=== PATIENT | male | born 1950 | race American Indian/Alaskan Native ===

== ENCOUNTER 2018-02-23 20:15 | Inpatient (IN) | payer MEDICARE ==
[2018-02-23 21:55] LABS: Basophils # (Auto) 0.1 K/mm3 (0.0-0.1); Basophils % (Auto) 0.7 % (0.0-1.8); Eosinophils % (Auto) 0.3 % (0.0-4.3); Hematocrit 46.4 % (35.5-45.6); Hemoglobin 15.4 gm/dl (11.8-15.2); Lymphocytes # (Auto) 1.3 K/mm3 (1.2-5.4); Lymphocytes % (Auto) 11.5 % (13.4-35.0); Mean Corpuscular HGB Conc 33 % (32-34); Mean Corpuscular Hemoglobin 31 pg (28-32); Mean Corpuscular Volume 94 fl (84-94); Monocytes # (Auto) 0.5 K/mm3 (0.0-0.8); Monocytes % (Auto) 4.5 % (0.0-7.3); Platelet Count 188 K/mm3 (140-440); Red Blood Count 4.92 M/mm3 (3.65-5.03); Red Cell Distribution Width 13.9 % (13.2-15.2)
[2018-02-23 22:09] LABS: Alanine Aminotransferase 19 units/L (7-56); Albumin 4.3 g/dL (3.9-5); BUN/Creatinine Ratio 18; Blood Urea Nitrogen 18 mg/dL (9-20); Calcium 8.8 mg/dL (8.4-10.2); Hemolysis Index 9
[2018-02-24] MEDS ORDERED: NACL 0.9% 1000 ML 1,000 ML IV ONE (06:53)
--- NOTE | 2018-02-24 06:53 | Emergency Department Report ---
ED General Adult HPI - General Chief complaint: Dental/Oral Stated complaint: TROUBLE SWALLOWING FOOD/WATER Time Seen by Provider: 02/24/18 06:39 Source: patient Mode of arrival: Ambulatory Limitations: No Limitations - History of Present Illness Initial comments: Mr. Hardwick is a pleasant 67 years old male visiting his sister from [place]. He presented to the ER complaining of difficulty swallowing food and liquids for the last 1 year but he stated that his symptoms of getting lost last night. He is stating that he stop eat and drink since last night because he is worried something got stuck in his throat. Patient past medical history significant for diabetes and stroke that left him with left sided weakness. Patient denied any recent weakness, numbness or tingling sensation. Patient denied any new speech problem recently. Patient denied any bowel or bladder incontinence. Severity scale (0 -10): 0 - Related Data Home Medications Medication Instructions Recorded Confirmed Last Taken AtorvaSTATin 40 mg PO HS 02/23/18 02/23/18 Unknown metFORMIN 500 mg PO QID 02/23/18 02/23/18 Unknown Allergies Allergy/AdvReac Type Severity Reaction Status Date / Time No Known Allergies Allergy Unverified 02/23/18 21:39 ED Review of Systems ROS: Stated complaint: TROUBLE SWALLOWING FOOD/WATER Other details as noted in HPI Comment: All other systems reviewed and negative Constitutional: denies: chills, fever Respiratory: denies: cough, orthopnea Cardiovascular: denies: chest pain, palpitations Gastrointestinal: denies: abdominal pain, nausea, vomiting, diarrhea, constipation, hematemesis, melena, hematochezia Musculoskeletal: denies: back pain Skin: denies: rash, lesions Neurological: denies: headache, weakness ED Past Medical Hx - Past Medical History Hx CVA: Yes (Left hemiparesis) Hx Diabetes: Yes Additional medical history: High Cholesterol - Surgical History Past Surgical History?: No - Social History Smoking Status: Never Smoker Substance Use Type: None - Medications Home Medications: Home Medications Medication Instructions Recorded Confirmed Last Taken Type AtorvaSTATin 40 mg PO HS 02/23/18 02/23/18 Unknown History metFORMIN 500 mg PO QID 02/23/18 02/23/18 Unknown History ED Physical Exam - General Limitations: No Limitations General appearance: alert, in no apparent distress - Head Head exam: Present: atraumatic, normocephalic, normal inspection - Eye Eye exam: Present: normal appearance - ENT ENT exam: Present: normal exam, normal orophraynx, mucous membranes moist - Neck Neck exam: Present: normal inspection, full ROM. Absent: tenderness, meningismus, lymphadenopathy, thyromegaly - Respiratory Respiratory exam: Present: normal lung sounds bilaterally. Absent: respiratory distress, wheezes, rales, rhonchi, chest wall tenderness, accessory muscle use, decreased breath sounds, prolonged expiratory - Cardiovascular Cardiovascular Exam: Present: regular rate, normal rhythm, normal heart sounds - GI/Abdominal GI/Abdominal exam: Present: soft, normal bowel sounds. Absent: distended, tenderness, guarding, rebound, rigid, organomegaly, mass, bruit, pulsatile mass , hernia - Extremities Exam Extremities exam: Present: normal inspection, full ROM, normal capillary refill. Absent: pedal edema, calf tenderness - Back Exam Back exam: Present: normal inspection, full ROM. Absent: CVA tenderness (L), muscle spasm, paraspinal tenderness - Neurological Exam Neurological exam: Present: alert, oriented X3, CN II-XII intact, abnormal gait , motor sensory deficit (left upper and lower extremity weakness which is chronic) - Psychiatric Psychiatric exam: Present: normal affect, normal mood - Skin Skin exam: Present: warm, intact, normal color ED Course Vital Signs 02/23/18 02/24/18 02/24/18 20:46 03:52 08:05 Temperature 98.6 F 98.3 F Pulse Rate 81 61 Respiratory 18 18 Rate Blood Pressure 138/75 130/68 Blood Pressure [Right] O2 Sat by Pulse 96 99 98 Oximetry 02/24/18 02/24/18 02/24/18 08:15 08:30 09:30 Temperature 97.6 F Pulse Rate 75 Respiratory 18 Rate Blood Pressure 170/85 132/70 Blood Pressure 170/85 [Right] O2 Sat by Pulse 99 99 98 Oximetry 02/24/18 10:00 Temperature Pulse Rate 67 Respiratory Rate Blood Pressure Blood Pressure [Right] O2 Sat by Pulse Oximetry ED Medical Decision Making - Lab Data Result diagrams: 02/23/18 21:43 02/23/18 21:43 - Medical Decision Making I discussed the patient is Dr. Ceja from gastroenterology. Dr. Ceja advised to admit the patient to the hospitalist and he'll be consulted on the patient. I discuss the options with the patient, patient agreed to be admitted. I discussed the patient is Dr. Fernandez, he advised to admit the patient to Dr. Cardoza. Critical care attestation.: If time is entered above; I have spent that time in minutes in the direct care of this critically ill patient, excluding procedure time. ED Disposition Clinical Impression: Dysphagia Disposition: DC-[id number] OP ADMIT IP TO THIS HOSP Is pt being admited?: Yes Condition: Stable
[2018-02-24] MEDS ORDERED: SODIUM CHLORIDE FLUSH SYRINGE 10 ML IV PRN (10:27)
[2018-02-24] MEDS ORDERED: TYLENOL PO PRN (10:27)
[2018-02-24] MEDS ORDERED: ZOFRAN IV PRN (10:27)
[2018-02-24] MEDS ORDERED: D50W (25GM) Syringe IV PRN (10:29)
[2018-02-24] MEDS ORDERED: APRESOLINE IV PRN (10:30)
--- NOTE | 2018-02-24 15:48 | Gastroenterology Consultation ---
History of Present Illness - Reason for Consult Consult date: 02/24/18 dysphagia Requesting physician: CHARLES DEAN - History of Present Illness Mr Hardwick is a 67 yo aam who presents for evaluation of progressive dysphagia. pt with h/o CVA over 1 year ago. He has had progressive dysphagia to solids and liquids for the past 1 year, but has been more frequent and worse over the last few weeks. He has been unable to tolerate any po intake for the past few days, but denies any food triggers prior to this to suggest a food impaction. He is attempting to keep some liquids down today. He has lost ~5 lbs but denies significant weight loss. Denies abd pain; pt is not on plavix or anticoagulation. Past History Past Medical History: hyperlipidemia, other (CVA) Past Surgical History: No surgical history Social history: no significant social history Family history: no significant family history Medications and Allergies Allergies Allergy/AdvReac Type Severity Reaction Status Date / Time No Known Allergies Allergy Unverified 02/23/18 21:39 Home Medications Medication Instructions Recorded Confirmed Last Taken Type AtorvaSTATin 40 mg PO HS 02/23/18 02/23/18 Unknown History metFORMIN 500 mg PO QID 02/23/18 02/23/18 Unknown History Active Meds: Active Medications Acetaminophen (Tylenol) 650 mg PO Q4H PRN PRN Reason: Pain MILD(1-3)/Fever >100.5/FIGUEROA Dextrose (D50w (25gm) Syringe) 50 ml IV PRN PRN PRN Reason: Hypoglycemia Hydralazine HCl (Apresoline) 10 mg IV Q4HR PRN PRN Reason: Blood Pressure Sodium Chloride (Nacl 0.9% 1000 Ml) 1,000 mls @ 100 mls/hr IV DIRECT KM Ondansetron HCl (Zofran) 4 mg IV Q8H PRN PRN Reason: Nausea And Vomiting Sodium Chloride (Sodium Chloride Flush Syringe 10 Ml) 10 ml IV BID KM Sodium Chloride (Sodium Chloride Flush Syringe 10 Ml) 10 ml IV PRN PRN PRN Reason: LINE FLUSH Review of Systems - Review of Systems All systems: negative (per HPI) Exam - Constitutional Vital Signs: Temp Pulse Resp BP Pulse Ox 97.6 F 56 L 18 131/74 98 02/24/18 13:21 02/24/18 13:21 02/24/18 13:21 02/24/18 13:21 02/24/18 13:21 General appearance: no acute distress - EENT Eyes: PERRL ENT: hearing intact - Neck Neck: supple - Respiratory Respiratory effort: normal Respiratory: bilateral: CTA - Cardiovascular Rhythm: regular Heart Sounds: Present: S1 & S2 Extremities: No edema - Gastrointestinal General gastrointestinal: Present: soft, non-tender, non-distended, normal bowel sounds - Neurologic Neurological: alert and oriented x3 - Psychiatric Psychiatric: appropriate mood/affect - Labs CBC & Chem 7: 02/23/18 21:43 02/23/18 21:43 Lab Results: Laboratory Results - last 24 hr 02/23/18 02/23/18 02/24/18 21:43 21:43 12:20 WBC 10.9 RBC 4.92 Hgb 15.4 H Hct 46.4 H MCV 94 MCH 31 MCHC 33 RDW 13.9 Plt Count 188 Lymph % (Auto) 11.5 L [place] % (Auto) 4.5 Eos % (Auto) 0.3 Baso % (Auto) 0.7 Lymph # 1.3 [place] # 0.5 Eos # 0.0 Baso # 0.1 Seg Neutrophils % 83.0 H Seg Neutrophils # 9.1 H Sodium 137 Potassium 4.6 Chloride 100.5 Carbon Dioxide 25 Anion Gap 16 BUN 18 Creatinine 1.0 Estimated GFR > 60 BUN/Creatinine Ratio 18 Glucose 154 H POC Glucose 91 Calcium 8.8 Total Bilirubin 0.60 AST 24 ALT 19 Alkaline Phosphatase 79 Total Protein 7.8 Albumin 4.3 Albumin/Globulin Ratio 1.2 Assessment and Plan 1. Dysphagia - sounds oropharyngeal given description, also with h/o CVA. will request speech eval and esophagram to r/o esophageal mechanical abnormalities. may need peg tube based on speech recommendations.
--- NOTE | 2018-02-24 17:53 | History and Physical Report ---
History of Present Illness Date of examination: 02/24/18 Date of admission: 02/24/18 08:56 Chief complaint: Difficulty swallowing History of present illness: Patient is a 57-year-old -[place] male with history of diabetes mellitus , who presented to the ED on account of 2 years history of worsening history of difficulty swallowing solids. He admits to some weight loss but unable to determine how much weight he had lost. He denies throat pain, anorexia, nausea/ vomiting, abdominal pain, constipation or diarrhea. No chest pain, shortness of breath, palpitation, leg swelling, fever, chills, or cough. No headaches, syncope or loss of consciousness. Past History Past Medical History: hyperlipidemia, other (CVA) Past Surgical History: No surgical history Social history: no significant social history (he denies tobacco, alcohol or illicit drug use) Family history: no significant family history Medications and Allergies Allergies Allergy/AdvReac Type Severity Reaction Status Date / Time No Known Allergies Allergy Unverified 02/23/18 21:39 Home Medications Medication Instructions Recorded Confirmed Last Taken Type AtorvaSTATin 40 mg PO HS 02/23/18 02/23/18 Unknown History metFORMIN 500 mg PO QID 02/23/18 02/23/18 Unknown History Active Meds: Active Medications Acetaminophen (Tylenol) 650 mg PO Q4H PRN PRN Reason: Pain MILD(1-3)/Fever >100.5/FIGUEROA Dextrose (D50w (25gm) Syringe) 50 ml IV PRN PRN PRN Reason: Hypoglycemia Hydralazine HCl (Apresoline) 10 mg IV Q4HR PRN PRN Reason: Blood Pressure Sodium Chloride (Nacl 0.9% 1000 Ml) 1,000 mls @ 100 mls/hr IV DIRECT KM Ondansetron HCl (Zofran) 4 mg IV Q8H PRN PRN Reason: Nausea And Vomiting Sodium Chloride (Sodium Chloride Flush Syringe 10 Ml) 10 ml IV BID KM Sodium Chloride (Sodium Chloride Flush Syringe 10 Ml) 10 ml IV PRN PRN PRN Reason: LINE FLUSH Review of Systems All systems: negative (except as documented in the HPI, all other systems were reviewed and negative) Exam - Constitutional Vitals: Temp Pulse Resp BP Pulse Ox 97.6 F 56 L 18 131/74 98 02/24/18 13:21 02/24/18 13:21 02/24/18 13:21 02/24/18 13:21 02/24/18 13:21 General appearance: Present: no acute distress, well-nourished - EENT Eyes: Present: PERRL, EOM intact ENT: hearing intact, clear oral mucosa - Neck Neck: Present: supple, normal ROM - Respiratory Respiratory effort: normal Respiratory: bilateral: CTA - Cardiovascular Heart Sounds: Present: S1 & S2. Absent: rub, click - Extremities Extremities: pulses symmetrical, No edema Peripheral Pulses: within normal limits - Abdominal General gastrointestinal: Present: soft, non-tender, non-distended, normal bowel sounds Male genitourinary: Present: deferred - Integumentary Integumentary: Present: clear, warm, dry - Musculoskeletal Musculoskeletal: gait normal, strength equal bilaterally - Psychiatric Psychiatric: appropriate mood/affect, intact judgment & insight - Neurologic Neurologic: CNII-XII intact, moves all extremities Results - Labs CBC & Chem 7: 02/23/18 21:43 02/23/18 21:43 Labs: Laboratory Last Values WBC 10.9 K/mm3 (4.5-11.0) 02/23/18 21:43 RBC 4.92 M/mm3 (3.65-5.03) 02/23/18 21:43 Hgb 15.4 gm/dl (11.8-15.2) H 02/23/18 21:43 Hct 46.4 % (35.5-45.6) H 02/23/18 21:43 MCV 94 fl (84-94) 02/23/18 21:43 MCH 31 pg (28-32) 02/23/18 21:43 MCHC 33 % (32-34) 02/23/18 21:43 RDW 13.9 % (13.2-15.2) 02/23/18 21:43 Plt Count 188 K/mm3 (140-440) 02/23/18 21:43 Lymph % (Auto) 11.5 % (13.4-35.0) L 02/23/18 21:43 [place] % (Auto) 4.5 % (0.0-7.3) 02/23/18 21:43 Eos % (Auto) 0.3 % (0.0-4.3) 02/23/18 21:43 Baso % (Auto) 0.7 % (0.0-1.8) 02/23/18 21:43 Lymph # 1.3 K/mm3 (1.2-5.4) 02/23/18 21:43 [place] # 0.5 K/mm3 (0.0-0.8) 02/23/18 21:43 Eos # 0.0 K/mm3 (0.0-0.4) 02/23/18 21:43 Baso # 0.1 K/mm3 (0.0-0.1) 02/23/18 21:43 Seg Neutrophils % 83.0 % (40.0-70.0) H 02/23/18 21:43 Seg Neutrophils # 9.1 K/mm3 (1.8-7.7) H 02/23/18 21:43 Sodium 137 mmol/L (137-145) 02/23/18 21:43 Potassium 4.6 mmol/L (3.6-5.0) 02/23/18 21:43 Chloride 100.5 mmol/L (98-107) 02/23/18 21:43 Carbon Dioxide 25 mmol/L (22-30) 02/23/18 21:43 Anion Gap 16 mmol/L 02/23/18 21:43 BUN 18 mg/dL (9-20) 02/23/18 21:43 Creatinine 1.0 mg/dL (0.8-1.5) 02/23/18 21:43 Estimated GFR > 60 ml/min 02/23/18 21:43 BUN/Creatinine Ratio 18 % 02/23/18 21:43 Glucose 154 mg/dL (75-100) H 02/23/18 21:43 POC Glucose 127 (70-105) H 02/24/18 16:25 Calcium 8.8 mg/dL (8.4-10.2) 02/23/18 21:43 Total Bilirubin 0.60 mg/dL (0.1-1.2) 02/23/18 21:43 AST 24 units/L (5-40) 02/23/18 21:43 ALT 19 units/L (7-56) 02/23/18 21:43 Alkaline Phosphatase 79 units/L (35-129) 02/23/18 21:43 Total Protein 7.8 g/dL (6.3-8.2) 02/23/18 21:43 Albumin 4.3 g/dL (3.9-5) 02/23/18 21:43 Albumin/Globulin Ratio 1.2 % 02/23/18 21:43 Assessment and Plan Assessment and plan: Dysphagia -Exact cause unknown -GI consulted DM2 -on SSI HLD -On statin Time spent: 30 minutes Disposition: Discharge will depend on clinical course
[2018-02-24] MEDS ORDERED: NON-FORMULARY (Atorvastatin 40 MG) PO SCH (22:00)
[2018-02-24] MEDS: SODIUM CHLORIDE FLUSH SYRINGE 10 ML IV SCH (22:44)
[2018-02-24] MEDS: HumaLOG SUB-Q SCH (22:46)
[2018-02-25] MEDS: NACL 0.9% 1000 ML 1,000 ML IV SCH ×2 (01:51→21:54)
[2018-02-25] MEDS: HumaLOG SUB-Q SCH ×3 (07:30→17:28)
--- NOTE | 2018-02-25 08:10 | Progress Note ---
Assessment and Plan Assessment and plan: 57 y/o male admitted with dehydration 2/2 poor oral intake as a result of worsening oropharyngeal dysphagia. A/P Profound Dehydration 2/2 poor oral intake Maintain IVF hydration monitor lytes and strict I/Os obtain repeat labs in am. Oropharyngeal Dysphagia In this pt with h/o CVA f/u ST eval and reccs Aspiration precautions at all times Keep HOB elevated at all times GI reccs appreciated. Adult FTT 2/2 poor oral intake' Nutrition consult for eval monitor closely HTN, essen, chronic continue mgt DM II continue SSI acchuchecks h/o CVA fall and aspiration precautions at all times Further pt mgt per hospital course. f/u GI reccs Consider advance diet, but discuss with the GI team 25 mins History Interval history: 67 y/o male admitted with progressive Oropharyngeal dysphagia, started about 2 yrs ago. His Barium swallow was negative. Pt admits to problems with solids more than liquids. Sister Ms Peguero was by bedside during the encounter. Symptoms started prior to pt's stroke Hospitalist Physical - Constitutional Vitals: Temp Pulse Resp BP Pulse Ox 97.6 F 63 18 134/69 100 02/25/18 02:09 02/25/18 02:09 02/25/18 02:09 02/25/18 02:09 02/25/18 02:09 General appearance: Present: no acute distress, other (appears younger than his stated age of 67 yrs. ) - EENT Eyes: Present: PERRL, EOM intact ENT: hearing intact, clear oral mucosa, other - Neck Neck: Present: supple, normal ROM, other (Oropharyngeal erythema, no oral thrush ) - Respiratory Respiratory: bilateral: CTA, negative: diminished, rales, rhonchi - Cardiovascular Rhythm: regular Heart Sounds: Present: S1 & S2 - Extremities Extremities: no ischemia, pulses intact, pulses symmetrical Peripheral Pulses: within normal limits - Abdominal General gastrointestinal: soft, non-tender, non-distended, normal bowel sounds - Integumentary Integumentary: Present: clear, warm, dry - Psychiatric Psychiatric: appropriate mood/affect, intact judgment & insight, memory intact, cooperative - Neurologic Neurologic: CNII-XII intact, moves all extremities, gait normal Results - Labs CBC & Chem 7: 02/23/18 21:43 02/23/18 21:43 Labs: Laboratory Last Values WBC 10.9 K/mm3 (4.5-11.0) 02/23/18 21:43 RBC 4.92 M/mm3 (3.65-5.03) 02/23/18 21:43 Hgb 15.4 gm/dl (11.8-15.2) H 02/23/18 21:43 Hct 46.4 % (35.5-45.6) H 02/23/18 21:43 MCV 94 fl (84-94) 02/23/18 21:43 MCH 31 pg (28-32) 02/23/18 21:43 MCHC 33 % (32-34) 02/23/18 21:43 RDW 13.9 % (13.2-15.2) 02/23/18 21:43 Plt Count 188 K/mm3 (140-440) 02/23/18 21:43 Lymph % (Auto) 11.5 % (13.4-35.0) L 02/23/18 21:43 [place] % (Auto) 4.5 % (0.0-7.3) 02/23/18 21:43 Eos % (Auto) 0.3 % (0.0-4.3) 02/23/18 21:43 Baso % (Auto) 0.7 % (0.0-1.8) 02/23/18 21:43 Lymph # 1.3 K/mm3 (1.2-5.4) 02/23/18 21:43 [place] # 0.5 K/mm3 (0.0-0.8) 02/23/18 21:43 Eos # 0.0 K/mm3 (0.0-0.4) 02/23/18 21:43 Baso # 0.1 K/mm3 (0.0-0.1) 02/23/18 21:43 Seg Neutrophils % 83.0 % (40.0-70.0) H 02/23/18 21:43 Seg Neutrophils # 9.1 K/mm3 (1.8-7.7) H 02/23/18 21:43 Sodium 137 mmol/L (137-145) 02/23/18 21:43 Potassium 4.6 mmol/L (3.6-5.0) 02/23/18 21:43 Chloride 100.5 mmol/L (98-107) 02/23/18 21:43 Carbon Dioxide 25 mmol/L (22-30) 02/23/18 21:43 Anion Gap 16 mmol/L 02/23/18 21:43 BUN 18 mg/dL (9-20) 02/23/18 21:43 Creatinine 1.0 mg/dL (0.8-1.5) 02/23/18 21:43 Estimated GFR > 60 ml/min 02/23/18 21:43 BUN/Creatinine Ratio 18 % 02/23/18 21:43 Glucose 154 mg/dL (75-100) H 02/23/18 21:43 POC Glucose 117 (70-105) H 02/25/18 07:56 Calcium 8.8 mg/dL (8.4-10.2) 02/23/18 21:43 Total Bilirubin 0.60 mg/dL (0.1-1.2) 02/23/18 21:43 AST 24 units/L (5-40) 02/23/18 21:43 ALT 19 units/L (7-56) 02/23/18 21:43 Alkaline Phosphatase 79 units/L (35-129) 02/23/18 21:43 Total Protein 7.8 g/dL (6.3-8.2) 02/23/18 21:43 Albumin 4.3 g/dL (3.9-5) 02/23/18 21:43 Albumin/Globulin Ratio 1.2 % 02/23/18 21:43 - Imaging and Cardiology Chest x-ray: report reviewed, image reviewed (barium swallow)
--- NOTE | 2018-02-25 11:12 | Fluoroscopy Report ---
BARIUM SWALLOW INDICATION: Dysphagia. COMPARISON: None similar. IMAGES/CINE CLIPS: 34 FINDINGS: Barium swallow performed. Patient swallowed thick and thin barium without any difficulty as also tolerated effervescent granules well. Cervical and thoracic spondylosis noted. No aspiration or penetration with normal swallowing mechanism. No abnormal pooling within the vallecula or piriform sinuses noted. Esophagus is normal in course and caliber. Normal peristalsis. No focal mucosal abnormality. Somewhat horizontally oriented stomach partly obscures the GE junction, though without demonstrable hiatal hernia or gastroesophageal reflux. Visualized gastric fundus is unremarkable. CONCLUSION: Normal barium swallow, as described. Thank you for the opportunity to participate in this patient's care.
--- NOTE | 2018-02-25 15:06 | Gastroenterology Progress Note ---
<PINEDA HERNANDEZ - Last Filed: 02/25/18 15:06> Assessment and Plan 1.dysphagia -etiology unclear- possible oropharyngeal given h/o CVA vs other -passed bedside swallow eval by speech -esophagram with normal results -recommend an EGD in am for further evaluation -okay for regular diet today then NPO after MN -continue supportive care -will follow Subjective Date of service: 02/25/18 Principal diagnosis: dysphagia Interval history: No acute distress or events overnight. Denies abd pain or N/V. Objective - Constitutional Vitals: Temp Pulse Resp BP Pulse Ox 97.6 F 67 17 108/73 90 02/25/18 08:14 02/25/18 10:00 02/25/18 08:14 02/25/18 08:14 02/25/18 10:00 General appearance: no acute distress - Respiratory Respiratory: bilateral: CTA - Cardiovascular Rhythm: regular Heart Sounds: Present: S1 & S2 - Gastrointestinal General gastrointestinal: Present: soft, non-tender, non-distended, normal bowel sounds - Neurologic Neurological: alert and oriented x3 - Labs CBC & Chem 7: 02/23/18 21:43 02/23/18 21:43 Labs: Laboratory Results - last 24 hr 02/24/18 02/24/18 02/25/18 16:25 21:23 07:56 POC Glucose 127 H 116 H 117 H 02/25/18 11:49 POC Glucose 110 H <JUDITH HERMOSILLO - Last Filed: 02/25/18 23:13> Assessment and Plan Pt seen and examined. Will plan for EGD tomorrow. If negative and tolerating po, can likely be discharged Objective - Constitutional Vitals: Temp Pulse Resp BP Pulse Ox 98.4 F 50 L 18 135/71 100 02/25/18 19:35 02/25/18 19:35 02/25/18 19:35 02/25/18 19:35 02/25/18 19:35 - Labs CBC & Chem 7: 02/23/18 21:43 02/23/18 21:43 Labs: Laboratory Results - last 24 hr 02/25/18 02/25/18 02/25/18 07:56 11:49 16:32 POC Glucose 117 H 110 H 93
[2018-02-25] MEDS: SODIUM CHLORIDE FLUSH SYRINGE 10 ML IV SCH ×2 (15:32→21:49)
[2018-02-26] MEDS: HumaLOG SUB-Q SCH ×3 (00:04→12:23)
[2018-02-26 03:39] LABS: Alanine Aminotransferase 19 units/L (7-56); Albumin 3.5 g/dL (3.9-5); BUN/Creatinine Ratio 12; Blood Urea Nitrogen 11 mg/dL (9-20); Calcium 8.4 mg/dL (8.4-10.2); Hematocrit 41.9 % (35.5-45.6); Hemoglobin 14.2 gm/dl (11.8-15.2); Hemolysis Index 9; Mean Corpuscular HGB Conc 34 % (32-34); Mean Corpuscular Hemoglobin 32 pg (28-32); Mean Corpuscular Volume 93 fl (84-94); Platelet Count 164 K/mm3 (140-440); Red Blood Count 4.51 M/mm3 (3.65-5.03); Red Cell Distribution Width 13.3 % (13.2-15.2)
[2018-02-26] MEDS: SODIUM CHLORIDE FLUSH SYRINGE 10 ML IV SCH (09:00)
[2018-02-26] MEDS ORDERED: NACL 0.9% 1000 ML 1,000 ML IV SCH (10:00)
[2018-02-26] MEDS: NACL 0.9% 1000 ML 1,000 ML IV SCH (10:11)
[2018-02-26] MEDS ORDERED: DIPRIVAN 10 MG/ML IV ONE (10:55)
[2018-02-26] MEDS ORDERED: VERSED ONE (10:56)
[2018-02-26] MEDS ORDERED: WATER FOR IRRIG STERILE IR ONE (10:58)
--- NOTE | 2018-02-26 11:06 | Operative Report ---
Operative Report Operative Report: Esophagogastroduodenoscopy Procedure Note Date of procedure: 02/26/2018 Endoscopist: Stanley Ceja Pre-op diagnosis: dysphagia Post-op diagnosis: mild esophagitis, otherwise normal upper endoscopy Anesthesia: MAC Complications: No immediate complications Estimated blood loss: None Procedure: After consent was obtained, the patient was placed in the left lateral decubitus position. The fujinon endoscope was inserted into the patient 's mouth under direct vision, and advanced into the 2nd portion of the duodenum without difficulty. The patient tolerated the procedure well. The views of the mucosa were good. Patient's vital signs were monitored continuously throughout the procedure. Findings: There was mild esophagitis at the GE junction. Otherwise, the esophagus appeared normal. The stomach appeared normal. The duodenum appeared normal. Impression: 1. Mild esophagitis, otherwise unremarkable upper endoscopy Recommendations: -patient can be discharged from GI stand point. he is tolerating po and passed swallow evaluation -anti-acid medication as needed will sign off, please call as needed or with questions
--- NOTE | 2018-02-26 11:44 | Anesthesia Day of Surgery ---
Anesthesia Day of Surgery - Day of Surgery Patient Examined: Yes Patient H&P Reviewed: Yes Patient is NPO: Yes
--- NOTE | 2018-02-26 11:44 | Anesthesia Consultation ---
Anesthesia Consult and Med Hx Date of service: 02/26/18 - Airway Anesthetic Teeth Evaluation: Edentulous ROM Head & Neck: Adequate Mental/Hyoid Distance: Adequate Mallampati Class: Class II Intubation Access Assessment: Probably Good - Pulmonary Exam CTA: Yes - Cardiac Exam Cardiac Exam: RRR - Pre-Operative Health Status ASA Pre-Surgery Classification: ASA3 Proposed Anesthetic Plan: MAC - Central Nervous System CVA: Yes (09/13/2016, left side weakness) - Endocrine Hx Non-Insulin Dependent Diabetes: Yes
--- NOTE | 2018-02-26 12:12 | Discharge Summary ---
Providers - Providers Date of Admission: 02/24/18 08:56 Date of discharge: 02/26/18 Attending physician: RUBY SKAGGS 02/24/18 08:04 Consult to Physician [CONS] Stat Comment: called office @1027/ed Consulting Provider: JUDITH HERMOSILLO Physician Instructions: Reason For Exam: difficulty swallowing 02/24/18 15:42 Speech Therapy Evaluation and Treat [CONS] Routine Reason For Exam: dysphagia 02/25/18 08:10 Consult to Dietitian/Nutrition [CONS] Routine Physician Instructions: Reason For Exam: Reason for Consult: WEIGHT LOSS Primary care physician: RESTAURANT COOK Hospitalization Reason for admission: Dysphagia Condition: Stable Pertinent studies: EGD Chest XR Barium swallow. Hospital course: History of present illness: Patient is a 67-year-old -[place] male with history of diabetes mellitus , who presented to the ED on account of 2 years history of worsening history of difficulty swallowing solids. He admits to some weight loss but unable to determine how much weight he had lost. He denies throat pain, anorexia, nausea/ vomiting, abdominal pain, constipation or diarrhea. No chest pain, shortness of breath, palpitation, leg swelling, fever, chills, or cough. No headaches, syncope or loss of consciousness. Brief Hospital course: Patient was admitted to the hospital service with a diagnosis of Dysphagia and placed on NPO status. He was seen in consultation by the GI team, who recommendation for Speech/ swallow evaluation. Patient subsequently underwent a Barium swallow, which was negative for any form of aspiration. Patient intermittently tolerated his diet well with no problems. With the recommendations of the GI specialist, patient underwent EGD today, which showed mild Esophagitis. Patient was then cleared for discharge by GI, who also recommended a PPI. Patient is therefore being discharged home today, 02/26/18, in stable condition with stable vital signs. Disposition: [id number] TO HOME OR SELFCARE Time spent for discharge: More than 30 mins - Discharge Diagnoses (1) Dysphagia Status: Acute Qualifiers: Dysphagia type: esophageal phase Qualified Code(s): R13.10 - Dysphagia, unspecified Comment: s/p EGD discharge home on oral Protonix daily. Follow up with PCP. (2) Dehydration Status: Acute Comment: Treated with IVF hydration (3) History of CVA (cerebrovascular accident) Status: Acute Comment: continue home mediations. Follow up with your PCP Fall precautions at all times Core Measure Documentation - Palliative Care Palliative Care/ Comfort Measures: Not Applicable - Core Measures Any of the following diagnoses?: none - VTE Discharge Requirements Deep Vein Thrombosis/Pulmonary Embolism Present on Admission: No Has pt received <5 days of overlap therapy or INR<2.0: No Anticoagulant overlap therapy prescribed at discharge: No Contraindication No Overlap Therapy order at DC: Medical Contraindication - Acute UT Discharge Requirements Aspirin at discharge: No Reason for no aspirin on DC: Medical contraindication KATIA/ARB for LVSD if EF <40%: Not Applicable Reason for no KATIA/ARB: Medical contraindication Beta roger at discharge: No Reason for no beta roger on DC: Medical contraindication Statin for LDL = or >100 mg/dl on DC: Not Applicable Reason for no statin on DC: Medical contraindication - Heart Failure Discharge Requirements KATIA/ARB for LVSD if EF <40%: Not Applicable Reason for no KATIA/ARB: Medical contraindication Beta roger at discharge: No Reason for no beta roger on DC: Medical contraindication - Stroke Discharge Requirements Statin for LDL = or >70 mg/dl on DC: Not Applicable Reason for no statin on DC: Medical Contraindication Anticoag for atrial fib/atrial flutter: Not Applicable Reason for no anticoag for AF/F on DC: Medical Contraindication Antithrombotic for ischemic stroke: No Reason for no antithrombotic on DC: Medical Contraindication Exam - Constitutional Vitals: Temp Pulse Resp BP Pulse Ox 98.3 F 55 L 12 126/62 99 02/26/18 11:06 02/26/18 11:36 02/26/18 11:36 02/26/18 11:36 02/26/18 11:36 General appearance: Present: no acute distress, well-nourished - EENT Eyes: Present: PERRL, EOM intact ENT: hearing intact, clear oral mucosa, dentition normal - Neck Neck: Present: supple, normal ROM - Respiratory Respiratory: bilateral: CTA, negative: rales, rhonchi, wheezing - Cardiovascular Rhythm: regular Heart Sounds: Present: S1 & S2 - Extremities Extremities: no ischemia, pulses intact, pulses symmetrical, normal temperature , normal color Peripheral Pulses: within normal limits - Abdominal General gastrointestinal: Present: soft, non-tender, non-distended, normal bowel sounds Male genitourinary: Present: deferred - Rectal Rectal Exam: deferred - Integumentary Integumentary: Present: clear, warm, dry - Musculoskeletal Musculoskeletal: strength equal bilaterally - Psychiatric Psychiatric: appropriate mood/affect, intact judgment & insight, memory intact, cooperative - Neurologic Neurologic: CNII-XII intact, moves all extremities - Allied Health Allied health notes reviewed: nursing, social work, case management Plan Activity: no restrictions, advance as tolerated Diet: regular, advance as tolerated Special Instructions: record daily BP diary Follow up with: PRIMARY CARE, [Primary Care Provider] - 3-5 Days Prescriptions: Pantoprazole [Protonix TAB] 40 mg PO QDAY 30 Days #30 tablet
[2018-02-26 13:47] VITALS: BP 103/68
[2018-02-27] MEDS ORDERED: PROTONIX PO SCH (10:00)
== END 2018-02-26 15:35 | disposition home or self-care (01) | DRG 392 ==
LOC: ED 20:15 → 2B-ACE 02-24 08:56
PROVIDERS: ADMIT Internal Medicine; ATTEND Family Medicine
PROC: 0DJ08ZZ Inspection of Upper Intestinal Tract, Via Natural or Artificial Opening Endoscopic (ICD-10-PCS; principal; 2018-02-26)
DX: K20.9 Esophagitis, unspecified (principal); I69.354 Hemiplegia and hemiparesis following cerebral infarction affecting left non-dominant side; R13.12 Dysphagia, oropharyngeal phase; E86.0 Dehydration; R62.7 Adult failure to thrive; E78.00 Pure hypercholesterolemia, unspecified; E78.5 Hyperlipidemia, unspecified; I10 Essential (primary) hypertension; E11.9 Type 2 diabetes mellitus without complications; Z79.899 Other long term (current) drug therapy; Z79.84 Long term (current) use of oral hypoglycemic drugs
CPT/HCPCS: 36415; 74220; 80053; 82962; 85025; 85027; 96360; 96361; 99285; A9270-GY; J2250; J2704; J7030